=== PATIENT | male | born 1970 | race Two or more races ===

== ENCOUNTER 2024-11-07 07:32 | Emergency (ER) | payer BC, SELFPAY ==
[2024-11-07 07:36] VITALS: BP 120/86
[2024-11-07 08:26] VITALS: BMI 21.6
[2024-11-07] MEDS: TYLENOL 1000 MG PO (08:42)
[2024-11-07 09:13] LABS: Urine Albumin 1+ (Neg - Trace); Urine Bilirubin Negative (Negative); Urine Character Clear (Clear); Urine Color Yellow; Urine Glucose Negative (Negative); Urine Ketone 2+ (Negative); Urine Leukocyte Negative (Negative); Urine Nitrite Negative (Negative); Urine Occult Blood Negative (Negative); Urine Urobilinogen Negative (Neg - 1+)
[2024-11-07 09:38] LABS: Urine Mucus Moderate
[2024-11-07 09:39] LABS: Urine Bacteria Few (Negative); Urine Red Blood Cell 0-2 /HPF (0-2); Urine White Cell 0-2 /HPF (0-5)
--- NOTE | 2024-11-07 10:38 | ED.GENMED ---
History of Present Illness
General
Chief Complaint: Male Genito-Urinary Symptoms
Source: patient and spouse
Time Seen by Provider: 11/07/24 08:12
History of Present Illness
History of Present Illness:
54-year-old male presents with left testicular pain. He reports pain is sort of at the attachment the spermatic cord. Patient has a history of migraines only. States this started this morning. He states he got up and was doing his normal routine
when he started to notice the pain. Denies abdominal pain. No fevers. No dysuria. No hematuria. No back pain. Spouse states that his pain seemed pretty acute this morning
Past History
Past History
ED Past Medical History: Other (Migraines)
ED Past Surgical History: Urological (Vasectomy)
Phy Exam
Physical Exam
Physical Exam:
CONSTITUTIONAL Patient alert and oriented to person, place and time. Well-appearing. Vital signs reviewed.
HEAD atraumatic, normocephalic.
EYES eyelids normal to inspection, Extraocular muscles intact, Conjunctiva normal, Sclera normal.
NECK normal range of motion, Trachea midline, no jugular venous distention.
RESPIRATORY CHEST No respiratory distress noted, Chest expansion equal
ABDOMEN abdomen nontender, Bowel sounds normal. No distention.
tenderness noted at the attachment of the testicle to spermatic cord. No hernia noted. No lymphadenopathy. No abnormal position. Unable to elicit cremasterics reflex. Penis normal. Circumcised.
BACK normal inspection, no obvious deformities
UPPER EXTREMITY range of motion normal, Motor strength normal, no cyanosis, no edema.
LOWER EXTREMITY range of motion normal, Motor strength normal, no cyanosis, no edema.
NEURO Speech normal, No focal motor deficits, Sincere coma scale 15, Memory normal, Cranial Nerves intact to screening exam.
SKIN skin warm, dry, and normal in color.
Course
Orders/Labs/Results
Orders:
Orders
11/07/24 07:36
US Scrotum Urgent
Comment:
Reason For Exam: L testicular pain
11/07/24 08:35
Acetaminophen [Tylenol] 1,000 mg PO NOW STA
11/07/24 08:44
Urinalysis Reflex To Culture Urgent
Date Specimen was Collected: 11/07/24
Time Specimen was Collected: 08:38
Urine Microscopic Reflex Cult Urgent
Abnormal Lab Results
11/07/24
08:44
Urine Ketones 2+ A
(Negative)
Urine Bacteria (Reflex) Few A
(Negative)
Urine Albumin (Reflex) 1+ A
(Neg - Trace)
Vital Signs
Initial and Last Documented VS:
Initial Vital Signs
Temp Pulse Resp BP Pulse Ox
97.7 F 61 18 120/86 98
11/07/24 07:36 11/07/24 07:36 11/07/24 07:36 11/07/24 07:36 11/07/24 07:36
Last Documented Vital Signs
Temp Pulse Resp BP Pulse Ox
97.7 F 61 18 120/86 98
11/07/24 07:36 11/07/24 07:36 11/07/24 07:36 11/07/24 07:36 11/07/24 07:36
MDM/Problems Addressed
Differential Diagnosis Includes:
Epididymitis, orchitis, torsion, torsion of the testes appendix, hydrocele, varicocele
MDM/Problems Addressed:
Hydrocele, possible pyocele
*Radiology
Radiology exam reviewed: radiology read reviewed
*Pulse Oximetry
Patient hypoxic: no
*Critical Care Note
Total Time (30-74mins, 75-104mins- exclusive of procedures): Not Applicable
Data Reviewed
Further Testing Considered But Not Given:
Consider CT of the abdomen but denies abdominal pain
Patient Management
Escalation/DeEscalation of care consider admission/obs:
Given the location of his tenderness and the findings, will treat for epididymitis. Refer to urology for outpatient management. Suspect that conservative management will be reasonable with tight scrotal support, NSAIDs and antibiotics
ED Attending Note
-
Portions of this chart may have been created with voice recognition software.� Occasional wrong word or��sound alike� substitutions may have occurred due to the inherent limitations of voice recognition software.
Discharge Plan
Departure
Patient Disposition: Home (Routine Discharge)
Date of Disposition: 11/07/24
Time of Disposition: 10:42
Patient with high blood pressure during this ER visit?: No
Discharge Problem:
Acute epididymitis, Hydrocele, Possible pyocele
Instructions: Epididymitis and orchitis, Hydrocele
Prescriptions:
New
doxycycline monohydrate 100 mg capsule
100 mg PO BID Qty: 14 0RF
No Action
sumatriptan succinate [Imitrex] 100 MG tablet
100 mg PO PRN PRN (Reason: migraines)
pdavchf-khsxgsldwjoto-wyoewnrh 1 TABLET tablet
1 tab PO PRN PRN (Reason: headache)
Referrals:
Maine Cabello MD [Family Provider] -
Activity Restrictions/Additional Instructions:
Possible pyocele
Please see your urologist in the next 1 week for follow-up and reevaluation. Please be sure to use tight scrotal support and anti-inflammatory medication such as ibuprofen [id number] for the next 5 to 7 days. Return immediately for fevers,
worsening pain, difficulty urinating or any other concerns.
Interventions
Interventions:
*Risk Screen - Suicide Last Done: 11/07/24 07:36
*General Assessment Last Done: 11/07/24 07:36
*Neglect/Abuse Screening Last Done: 11/07/24 08:30
*ED- Fall Risk Assessment Last Done: 11/07/24 08:27
*ED COVID-19 Vaccine History Last Done: 11/07/24 08:27
ED-Male Genitourinary Assessment Last Done: 11/07/24 08:31
Discharge Date and Time
Print Language: UKRAINIAN
== END 2024-11-07 11:23 | disposition home or self-care (01) ==
LOC: EMR 07:32
PROVIDERS: EMERGENCY PHYSICIAN Emergency Medicine; FAMILY PHYSICIAN Family Medicine
DX: N45.1 Epididymitis (principal); N43.3 Hydrocele, unspecified
CPT/HCPCS: 99284; 76870; 81003; 81015; 93976